=== PATIENT | female | born 1940 | race Caucasian/White ===

== ENCOUNTER 2018-04-28 17:23 | Emergency (ER) | payer MEDICARE, MEDICAID ==
[~2018-04-28] VITALS: Ht 157.5 cm; Wt 54.5 kg
[2018-04-28 18:38] LABS: BASOPHILS % (AUTO) 0.6 % (0.0-2.0); EOSINOPHILS % (AUTO) 1.8 % (1.0-6.0); HEMATOCRIT 25.6 % (36-46); HEMOGLOBIN 8.6 g/dL (12.0-16.0); LYMPHOCYTES # (AUTO) 1.1 K/uL (1.0-4.8); LYMPHOCYTES % (AUTO) 13.5 % (22.0-44.0); MEAN CORPUSCULAR HEMOGLOBIN 28.9 pg (26.0-34.0); MEAN CORPUSCULAR HGB CONC 33.4 G/dL (31.0-37.0); MEAN CORPUSCULAR VOLUME 87 fL (80-100); MONOCYTES # (AUTO) 1.1 K/uL (0.1-1.0); NEUTROPHILS # (AUTO) 5.9 K/uL (1.8-7.7); NEUTROPHILS % (AUTO) 71.1 % (40.0-70.0); PLATELET COUNT (AUTO) 308 K/uL (150-450); RED BLOOD CELL COUNT(AUTO) 2.96 MIL/uL (4.00-5.20); RED CELL DISTRIBUTION WIDTH 19.6 % (11.5-14.5)
[2018-04-28 18:47] LABS: CALCIUM, TOTAL 7.8 mg/dL (8.8-10.5); CREATININE 2.35 mg/dL (0.60-1.30); POTASSIUM 3.8 mmol/L (3.5-5.1)
[2018-04-28 18:53] LABS: ALBUMIN 1.7 g/dL (3.4-5.0); BILIRUBIN,TOTAL 0.2 mg/dL (0.1-1.0); TOTAL PROTEIN, SERUM 6.6 g/dL (6.4-8.2)
[2018-04-28 18:55] LABS: LACTIC ACID 1.9 mmol/L (0.4-2.0)
[2018-04-28] MEDS ORDERED: CefTRIAXone SODIUM 1 GM in DEXTROSE 5%-WATER 10 ML IV ONE (19:30)
[2018-04-28] MEDS ORDERED: MAGOX PO (21:35)
[2018-04-28] MEDS ORDERED: ASPI-1182 PO (21:35)
[2018-04-28] MEDS ORDERED: INSNOV SQ (21:35)
[2018-04-28] MEDS ORDERED: LACT-90 PO (21:35)
[2018-04-28] MEDS ORDERED: MULT-1203 PO (21:35)
[2018-04-28] MEDS ORDERED: ATOR40TA28 PO (21:35)
[2018-04-28] MEDS ORDERED: MOM30 PO (21:35)
[2018-04-28] MEDS ORDERED: ACET160S2 PO (21:35)
[2018-04-28] MEDS ORDERED: LACT1TAB15 PO (21:35)
[2018-04-28] MEDS ORDERED: PANT40TA25 PO (21:35)
[2018-04-28] MEDS ORDERED: MIRALAX PO (21:35)
[2018-04-29 08:34] LABS: GLUCOSE,POINT OF CARE 154 MG/DL (70-110)
[2018-04-29 10:30] VITALS: BP 112/42
== END 2018-04-29 11:07 | disposition short-term general hospital (02) ==
LOC: EMS 17:25
DX: T81.30XA Disruption of wound, unspecified, initial encounter (principal); L08.9 Local infection of the skin and subcutaneous tissue, unspecified; E11.9 Type 2 diabetes mellitus without complications; K21.9 Gastro-esophageal reflux disease without esophagitis; E78.00 Pure hypercholesterolemia, unspecified; I12.0 Hypertensive chronic kidney disease with stage 5 chronic kidney disease or end stage renal disease; E11.22 Type 2 diabetes mellitus with diabetic chronic kidney disease; N18.6 End stage renal disease; Z99.2 Dependence on renal dialysis
CPT/HCPCS: 36415; 80053; 82962; 83605; 85025; 87040; 87070; 87077; 87186; 96374; 99285; J0696; J7060